=== PATIENT | male | born 1985 | race Hispanic/Latino ===

== ENCOUNTER 2016-04-08 16:14 | Emergency (ER) | payer MEDICAID ==
[2016-04-08 17:31] LABS: Urine Drugs of Abuse Note Disclamer
--- NOTE | 2016-04-08 17:41 | Emergency Department Report ---
ED General Adult HPI - General Chief complaint: Psych Stated complaint: COMBATIVE Time Seen by Provider: 04/08/16 17:31 Source: police, RN notes reviewed Mode of arrival: Ambulatory Limitations: Altered Mental Status, Other (intoxicated) - History of Present Illness Initial comments: This is a 30-year-old male, previously unknown to me. He is brought to the hospital by police department. As per documentation from police department, patient was "combative, no sense of reality." The police guard indicated that the patient appeared upset and was combative. Patient required handcuffs. The patient to me is quite disorganized. He is talking about running through a fall risk, and he is worried about humpty dumpty and a jessica rabbit. She has scratches on his right forehead, and indicates that he was running through her [place]. The patient denies homicidality and suicidality. He denies abdominal pain and chest pain. -: unknown Severity scale (0 -10): 0 Consistency: constant Improves with: none Worsens with: none Associated Symptoms: confusion - Related Data Home Medications Medication Instructions Recorded Confirmed Last Taken ALPRAZolam [Xanax TAB] 0.5 mg PO BID PRN 04/08/16 04/08/16 Unknown Diazepam Tab [Valium] 2 mg PO QHS 04/08/16 04/08/16 Unknown clonazePAM [ Klonopin] 0.5 mg PO BID PRN 04/08/16 04/08/16 Unknown Allergies Allergy/AdvReac Type Severity Reaction Status Date / Time risperidone [From Risperdal] Allergy Unknown Verified 04/08/16 17:24 ED Review of Systems ROS: Stated complaint: COMBATIVE Other details as noted in HPI Comment: Unobtainable due to pts medical conditions Constitutional: denies: fever Eyes: denies: vision change ENT: denies: epistaxis Respiratory: denies: cough Cardiovascular: denies: chest pain Gastrointestinal: denies: abdominal pain Genitourinary: as per HPI Musculoskeletal: as per HPI, arthralgia Skin: lesions Neurological: confusion Psychiatric: as per HPI ED Past Medical Hx - Past Medical History Previous Medical History?: No - Social History Smoking Status: Unknown if ever smoked - Medications Home Medications: Home Medications Medication Instructions Recorded Confirmed Last Taken Type ALPRAZolam [Xanax TAB] 0.5 mg PO BID PRN 04/08/16 04/08/16 Unknown History Diazepam Tab [Valium] 2 mg PO QHS 04/08/16 04/08/16 Unknown History clonazePAM [ Klonopin] 0.5 mg PO BID PRN 04/08/16 04/08/16 Unknown History ED Physical Exam - General General appearance: alert, in no apparent distress - Head Head exam: Present: normocephalic, other (superficial abrasions on the right forehead.) - Eye Eye exam: Present: normal appearance, EOMI. Absent: nystagmus - ENT ENT exam: Present: normal exam, normal orophraynx, mucous membranes moist - Neck Neck exam: Present: normal inspection, full ROM. Absent: tenderness, meningismus - Respiratory Respiratory exam: Present: normal lung sounds bilaterally. Absent: respiratory distress, wheezes, rales, rhonchi, stridor, chest wall tenderness - Cardiovascular Cardiovascular Exam: Present: regular rate, normal rhythm, normal heart sounds. Absent: bradycardia, tachycardia, irregular rhythm, systolic murmur, diastolic murmur, rubs, gallop - GI/Abdominal GI/Abdominal exam: Present: soft, normal bowel sounds. Absent: distended, tenderness, guarding, rebound, rigid, pulsatile mass - Rectal Rectal exam: Present: deferred - Extremities Exam Extremities exam: Present: normal inspection, full ROM, normal capillary refill. Absent: tenderness, pedal edema, joint swelling, calf tenderness - Back Exam Back exam: Present: normal inspection, full ROM. Absent: tenderness, CVA tenderness (R), CVA tenderness (L), muscle spasm, paraspinal tenderness, vertebral tenderness - Neurological Exam Neurological exam: Present: alert, normal gait, other (Extraocular movements intact. Tongue midline. No facial droop. Facial sensation intact to light touch in the V1, V2, V3 distribution bilaterally. 5 and 5 strength in 4 extremities.. Sensation is intact to light touch in 4 extremities.). Absent: motor sensory deficit - Psychiatric Psychiatric exam: Present: anxious - Skin Skin exam: Present: warm, dry, intact, normal color. Absent: rash ED Course Vital Signs 04/08/16 04/08/16 04/08/16 17:17 17:20 17:21 Temperature 98.7 F 98.7 F Pulse Rate 96 H 96 H Respiratory 16 16 16 Rate Blood Pressure 124/80 Blood Pressure 124/80 [Left] O2 Sat by Pulse 97 97 97 Oximetry - Reevaluation(s) Reevaluation #1: 04/08/16 18:45 Differential diagnosis: Rhabdomyolysis, intracranial injury, cervical spine injury, psychosis secondary to drugs Assessment and plan: 30-year-old male brought to the hospital by police for aggressive behavior and being combative. Clinically appears intoxicated. Noncontrast CAT scan of the cervical spine and brain are pending. Laboratory studies are reviewed. Creatinine kinase pending. Patient clearly represents a danger to himself and other people, is unable to make decisions, does not exhibit decision-making capacity. Therefore he will require 1013. However, if the patient kristy up, is not combative, and is not belligerent, and can clearly demonstrate decision-making capacity, I think it would be reasonable to discontinue his 1013. Reevaluation #2: 04/08/16 20:[address] scan of the head and cervical spine are negative. Laboratory studies reviewed. Creatinine kinase of 600 minimal, compartments are soft, does not meet criteria for IV fluids. Patient can tolerate hydration orally, which will decrease his CK level. At this point in time, I see no immediate medical contraindication to psychiatric admission/evaluation/patient. The manager medical is informed. 04/08/16 20:16 ED Medical Decision Making - Lab Data Result diagrams: 04/08/16 17:30 04/08/16 17:30 Vital Signs 04/08/16 04/08/16 04/08/16 17:17 17:20 17:21 Temperature 98.7 F 98.7 F Pulse Rate 96 H 96 H Respiratory 16 16 16 Rate Blood Pressure 124/80 Blood Pressure 124/80 [Left] O2 Sat by Pulse 97 97 97 Oximetry Lab Results 04/08/16 04/08/16 04/08/16 Range/Units 17:28 17:28 17:30 WBC (4.5-11.0) K/mm3 RBC (3.65-5.03) M/mm3 Hgb (11.8-15.2) gm/dl Hct (35.5-45.6) % MCV (84-94) fl MCH (28-32) pg MCHC (32-34) % RDW (13.2-15.2) % Plt Count (140-440) K/mm3 Lymph % (Auto) (13.4-35.0) % [place] % (Auto) (0.0-7.3) % Eos % (Auto) (0.0-4.3) % Baso % (Auto) (0.0-1.8) % Lymph # (1.2-5.4) K/mm3 [place] # (0.0-0.8) K/mm3 Eos # (0.0-0.4) K/mm3 Baso # (0.0-0.1) K/mm3 Seg Neutrophils % (40.0-70.0) % Seg Neutrophils # (1.8-7.7) K/mm3 Sodium 140 (137-145) mmol/L Potassium 3.8 (3.6-5.0) mmol/L Chloride 99.7 (98-107) mmol/L Carbon Dioxide 25 (22-30) mmol/L Anion Gap 19 mmol/L BUN 9 (9-20) mg/dL Creatinine 0.6 L (0.8-1.5) mg/dL Estimated GFR > 60 ml/min BUN/Creatinine Ratio 15.00 % Glucose 79 (75-100) mg/dL Calcium 9.1 (8.4-10.2) mg/dL Urine Color Yellow (Yellow) Urine Turbidity Clear (Clear) Urine pH 6.0 (5.0-7.0) Ur Specific [place] 1.009 (1.003-1.030) Urine Protein <15 mg/dl (Negative) mg/dL Urine Glucose (UA) Neg (Negative) mg/dL Urine Ketones Neg (Negative) mg/dL Urine Blood Neg (Negative) Urine Nitrite Neg (Negative) Urine Bilirubin Neg (Negative) Urine Urobilinogen < 2.0 (<2.0) mg/dL Ur Leukocyte Esterase Neg (Negative) Urine WBC (Auto) < 1.0 (0.0-6.0) /HPF Urine RBC (Auto) 2.0 (0.0-6.0) /HPF Urine Opiates Screen Presumptive negative Urine Methadone Screen Presumptive negative Ur Barbiturates Screen Presumptive negative Ur Phencyclidine Scrn Presumptive negative Ur Amphetamines Screen Presumptive negative U Benzodiazepines Scrn Presumptive negative Urine Cocaine Screen Presumptive negative U Marijuana (THC) Screen Presumptive positive Drugs of Abuse Note Disclamer Plasma/Serum Alcohol (0-0.07) gm% 04/08/16 04/08/16 Range/Units 17:30 17:30 WBC 6.6 (4.5-11.0) K/mm3 RBC 5.19 H (3.65-5.03) M/mm3 Hgb 12.5 (11.8-15.2) gm/dl Hct 40.2 (35.5-45.6) % MCV 77 L (84-94) fl MCH 24 L (28-32) pg MCHC 31 L (32-34) % RDW 16.4 H (13.2-15.2) % Plt Count 283 (140-440) K/mm3 Lymph % (Auto) 17.7 (13.4-35.0) % [place] % (Auto) 7.5 H (0.0-7.3) % Eos % (Auto) 2.6 (0.0-4.3) % Baso % (Auto) 0.9 (0.0-1.8) % Lymph # 1.2 (1.2-5.4) K/mm3 [place] # 0.5 (0.0-0.8) K/mm3 Eos # 0.2 (0.0-0.4) K/mm3 Baso # 0.1 (0.0-0.1) K/mm3 Seg Neutrophils % 71.3 H (40.0-70.0) % Seg Neutrophils # 4.7 (1.8-7.7) K/mm3 Sodium (137-145) mmol/L Potassium (3.6-5.0) mmol/L Chloride (98-107) mmol/L Carbon Dioxide (22-30) mmol/L Anion Gap mmol/L BUN (9-20) mg/dL Creatinine (0.8-1.5) mg/dL Estimated GFR ml/min BUN/Creatinine Ratio % Glucose (75-100) mg/dL Calcium (8.4-10.2) mg/dL Urine Color (Yellow) Urine Turbidity (Clear) Urine pH (5.0-7.0) Ur Specific [place] (1.003-1.030) Urine Protein (Negative) mg/dL Urine Glucose (UA) (Negative) mg/dL Urine Ketones (Negative) mg/dL Urine Blood (Negative) Urine Nitrite (Negative) Urine Bilirubin (Negative) Urine Urobilinogen (<2.0) mg/dL Ur Leukocyte Esterase (Negative) Urine WBC (Auto) (0.0-6.0) /HPF Urine RBC (Auto) (0.0-6.0) /HPF Urine Opiates Screen Urine Methadone Screen Ur Barbiturates Screen Ur Phencyclidine Scrn Ur Amphetamines Screen U Benzodiazepines Scrn Urine Cocaine Screen U Marijuana (THC) Screen Drugs of Abuse Note Plasma/Serum Alcohol 0.02 (0-0.07) gm% - Radiology Data Radiology results: report reviewed, image reviewed ct head and spine negative for acute disease Critical care attestation.: If time is entered above; I have spent that time in minutes in the direct care of this critically ill patient, excluding procedure time. ED Disposition Clinical Impression: Psychosis Disposition: DC/TX PSY HOSP/PSY UNIT Is pt being admited?: No Does the pt Need Aspirin: No Condition: Good Referrals: PRIMARY CARE, [Primary Care Provider] - 3-5 Days
[2016-04-08 17:54] LABS: Basophils % (Auto) 0.9 % (0.0-1.8); Eosinophils % (Auto) 2.6 % (0.0-4.3); Hematocrit 40.2 % (35.5-45.6); Hemoglobin 12.5 gm/dl (11.8-15.2); Mean Corpuscular HGB Conc 31 % (32-34); Mean Corpuscular Volume 77 fl (84-94); Platelet Count 283 K/mm3 (140-440); Red Blood Count 5.19 M/mm3 (3.65-5.03); Red Cell Distribution Width 16.4 % (13.2-15.2); White Blood Count 6.6 K/mm3 (4.5-11.0)
[2016-04-08 17:57] LABS: Bilirubin,Urine NEG (Negative); Blood,Urine NEG (Negative); Ketones,Urine NEG (Negative); Leukocyte Esterase,Urine NEG (Negative); Nitrite,Urine NEG (Negative); Protein,Urine <15 mg/dL mg/dL (Negative); Urobilinogen,Urine < 2.0 mg/dL (<2.0); WBC,Urine < 1.0 /HPF (0.0-6.0)
[2016-04-08 18:13] LABS: Anion Gap 19 mmol/L; Blood Urea Nitrogen 9 mg/dL (9-20); Calcium 9.1 mg/dL (8.4-10.2); Carbon Dioxide 25 mmol/L (22-30); Chloride 99.7 mmol/L (98-107); Glucose 79 mg/dL (75-100); Potassium 3.8 mmol/L (3.6-5.0); Sodium 140 mmol/L (137-145)
[2016-04-08 18:23] LABS: Mean Corpuscular Hemoglobin 24 pg (28-32)
[2016-04-08] MEDS ORDERED: ATIVAN IM PRN ×2 (18:51→20:06)
[2016-04-08] MEDS ORDERED: VALIUM IM ONE (19:16)
[2016-04-08] MEDS ORDERED: HALDOL IM ONE (19:16)
--- NOTE | 2016-04-08 20:14 | Cat Scan Report ---
FINAL REPORT EXAM: CT HEAD/BRAIN WO CON HISTORY: aggressive bevahior TECHNIQUE: CT head without contrast PRIORS: None. FINDINGS: No acute intra-axial or extra-axial hemorrhage is identified. There is no evidence of midline shift or mass effect. The ventricles and sulci are within normal limits. Zee-white matter differentiation is intact. No acute parenchymal abnormalities seen. Bony calvarium is grossly intact. There is increased density within ethmoid air cells and frontal sinus most consistent with chronic sinusitis. IMPRESSION: Evidence for chronic sinusitis No acute intracranial findings
--- NOTE | 2016-04-08 20:15 | Cat Scan Report ---
FINAL REPORT EXAM: CT CERVICAL SPINE WO CON HISTORY: aggressive bevahior TECHNIQUE: CT cervical spine with reconstructions PRIORS: None. FINDINGS: Vertebral bodies demonstrate normal height and alignment. The disk spaces are within normal limits. The facet joints demonstrate normal alignment. The spinous processes are intact. Craniocervical junction is unremarkable. C1 and C2 are intact. Incidentally noted is hemangioma within right pedicle T1 IMPRESSION: Negative CT cervical spine. No acute abnormality seen.
--- NOTE | 2016-04-09 15:30 | Event Note ---
Date: 04/09/16 No recent events. Patient awaits psychiatric placement. Vital Signs 04/08/16 04/08/16 04/08/16 17:17 17:20 17:21 Temperature 98.7 F 98.7 F Pulse Rate 96 H 96 H Respiratory 16 16 16 Rate Blood Pressure 124/80 Blood Pressure 124/80 [Left] O2 Sat by Pulse 97 97 97 Oximetry 04/08/16 21:20 Temperature 98.6 F Pulse Rate 89 Respiratory 18 Rate Blood Pressure Blood Pressure 124/68 [Left] O2 Sat by Pulse 97 Oximetry
[2016-04-09 15:32] VITALS: BP 122/78
== END 2016-04-09 22:00 ==
LOC: EEVIPCON 16:14 → ED 16:14
DX: F29 Unspecified psychosis not due to a substance or known physiological condition (principal); S00.81XA Abrasion of other part of head, initial encounter; X58.XXXA Exposure to other specified factors, initial encounter; Y93.9 Activity, unspecified; Y92.9 Unspecified place or not applicable; Y99.9 Unspecified external cause status
CPT/HCPCS: 36415; 70450; 72125; 80048; 80307; 81001; 82550; 85025; 96372; 99285; G0480; J2060; 80320

== ENCOUNTER 2018-06-12 16:21 | Emergency (ER) | payer MEDICARE ==
--- NOTE | 2018-06-12 18:45 | Emergency Department Report ---
ED General Adult HPI - General Chief complaint: Psych Stated complaint: PSYCH Time Seen by Provider: 06/12/18 17:59 Source: patient, EMS (ems notes not available at time of chart dictation), RN notes reviewed, old records reviewed Mode of arrival: Ambulatory Limitations: No Limitations - History of Present Illness Initial comments: This is a 32-year-old gentleman, known to this provider previously, history of psychiatric disease and hypertension, who presents to the emergency room today with a complaint of pain less suicidality. Symptoms present 1 month. Hallucinations. He denies overdose, denies access to guns, firearms. He reports that he is not really taking his outpatient medications. He denies headache, neck pain, chest pain, abdominal pain, shortness of breath. He reports no exacerbating or relieving factors. Reports no qualitative nature to his symptoms, and describes no radiation. -: Gradual, week(s) Consistency: constant Improves with: none Worsens with: none Associated Symptoms: denies other symptoms - Related Data Home Medications Medication Instructions Recorded Confirmed Last Taken ALPRAZolam [Xanax TAB] 0.5 mg PO BID PRN 04/08/16 04/08/16 Unknown clonazePAM [ Klonopin] 0.5 mg PO BID PRN 04/08/16 04/08/16 Unknown diazePAM TAB [Valium] 2 mg PO QHS 04/08/16 04/08/16 Unknown Allergies Allergy/AdvReac Type Severity Reaction Status Date / Time risperidone [From Risperdal] Allergy Unknown Verified 06/12/18 17:52 ED Review of Systems ROS: Stated complaint: PSYCH Other details as noted in HPI Constitutional: denies: fever Eyes: denies: vision change ENT: denies: epistaxis Respiratory: denies: cough Cardiovascular: denies: chest pain Gastrointestinal: denies: abdominal pain Genitourinary: denies: urgency, dysuria Musculoskeletal: denies: back pain Skin: denies: lesions Neurological: denies: headache, weakness Psychiatric: auditory hallucinations, suicidal thoughts. denies: visual hallucinations, homicidal thoughts ED Past Medical Hx - Past Medical History Hx Hypertension: Yes Hx Psychiatric Treatment: Yes (Bipolar, schizophrenia) - Social History Smoking Status: Current Every Day Smoker Substance Use Type: None - Medications Home Medications: Home Medications Medication Instructions Recorded Confirmed Last Taken Type ALPRAZolam [Xanax TAB] 0.5 mg PO BID PRN 04/08/16 04/08/16 Unknown History clonazePAM [ Klonopin] 0.5 mg PO BID PRN 04/08/16 04/08/16 Unknown History diazePAM TAB [Valium] 2 mg PO QHS 04/08/16 04/08/16 Unknown History ED Physical Exam - General Limitations: No Limitations General appearance: alert - Head Head exam: Present: atraumatic, normocephalic - Eye Eye exam: Present: normal appearance, EOMI, other (visual acuity intact to finger counting, color perception, reading at a close distance). Absent: nystagmus - ENT ENT exam: Present: normal exam, normal orophraynx, mucous membranes moist, normal external ear exam - Neck Neck exam: Present: normal inspection, full ROM. Absent: tenderness, meni ngismus - Respiratory Respiratory exam: Present: normal lung sounds bilaterally. Absent: respiratory distress - Cardiovascular Cardiovascular Exam: Present: regular rate, normal rhythm, normal heart sounds. Absent: bradycardia, tachycardia, irregular rhythm, systolic murmur, diastolic murmur, rubs, gallop - GI/Abdominal GI/Abdominal exam: Present: soft. Absent: distended, tenderness, guarding, rebound, rigid, pulsatile mass - Rectal Rectal exam: Present: deferred - Extremities Exam Extremities exam: Present: normal inspection, full ROM, other (2+ pulses noted in the bilateral upper, lower extremities. Compartments soft. No long bony tenderness. The pelvis is stable.). Absent: pedal edema, joint swelling, calf tenderness - Back Exam Back exam: Present: normal inspection, full ROM. Absent: tenderness, CVA tenderness (R), paraspinal tenderness, vertebral tenderness - Neurological Exam Neurological exam: Present: alert, oriented X3, CN II-XII intact, normal gait, other (Extraocular movements intact. Tongue midline. No facial droop. Facial sensation intact to light touch in the V1, V2, V3 distribution bilaterally. 5 and 5 strength in 4 extremities.. Sensation is intact to light touch in 4 extremities.). Absent: motor sensory deficit - Psychiatric Psychiatric exam: Present: flat affect, suicidal ideation - Skin Skin exam: Present: warm, dry, intact, normal color. Absent: rash ED Course Vital Signs 06/12/18 06/12/18 17:52 17:59 Temperature 98.4 F Pulse Rate 82 Respiratory 18 16 Rate Blood Pressure 150/92 O2 Sat by Pulse 96 Oximetry - Reevaluation(s) Reevaluation #1: 06/12/18 19:23 Differential diagnosis, including but not limited to: Mood disorder, suicidality, medical clearance for psychiatric placement Assessment and plan: 32-year-old gentleman, calm and cooperative, flat affect, with suicidality. Patient is afebrile, with reassuring vital signs with the exception of hypertension, which does not appear to be acutely decompensated. The patient will be placed on a 1013, and screening laboratory studies will be obtained. A psychiatric consultation has been requested, and we will contact the psychiatric team once the patient has been deemed medically suitable for psychiatric placement. Reevaluation #2: 06/12/18 19:55 Laboratory studies reviewed, and are unremarkable at this time. At this point in time, there does not appear to be an immediate medical contraindication to psychiatric admission, evaluation, consultation and placement at this time. ED Medical Decision Making - Lab Data Result diagrams: 06/12/18 19:07 06/12/18 19:07 Vital Signs 06/12/18 06/12/18 17:52 17:59 Temperature 98.4 F Pulse Rate 82 Respiratory 18 16 Rate Blood Pressure 150/92 O2 Sat by Pulse 96 Oximetry Lab Results 06/12/18 06/12/18 06/12/18 Range/Units 19:07 19:07 19:07 WBC 7.9 (4.5-11.0) K/mm3 RBC 5.30 H (3.65-5.03) M/mm3 Hgb 13.6 (11.8-15.2) gm/dl Hct 41.2 (35.5-45.6) % MCV 78 L (84-94) fl MCH 26 L (28-32) pg MCHC 33 (32-34) % RDW 15.2 (13.2-15.2) % Plt Count 268 (140-440) K/mm3 Sodium 141 (137-145) mmol/L Potassium 5.1 H (3.6-5.0) mmol/L Chloride 100.8 (98-107) mmol/L Carbon Dioxide 29 (22-30) mmol/L Anion Gap 16 mmol/L BUN 8 L (9-20) mg/dL Creatinine 0.7 L (0.8-1.5) mg/dL Estimated GFR > 60 ml/min BUN/Creatinine Ratio 11 % Glucose 89 (75-100) mg/dL Calcium 9.5 (8.4-10.2) mg/dL Total Creatine Kinase 143 (55-170) units/L Urine Color (Yellow) Urine Turbidity (Clear) Urine pH (5.0-7.0) Ur Specific [place] (1.003-1.030) Urine Protein (Negative) mg/dL Urine Glucose (UA) (Negative) mg/dL Urine Ketones (Negative) mg/dL Urine Blood (Negative) Urine Nitrite (Negative) Urine Bilirubin (Negative) Urine Urobilinogen (<2.0) mg/dL Ur Leukocyte Esterase (Negative) Urine WBC (Auto) (0.0-6.0) /HPF Urine RBC (Auto) (0.0-6.0) /HPF Urine Mucus /HPF Salicylates < 0.3 L (2.8-20.0) mg/dL Urine Opiates Screen Urine Methadone Screen Acetaminophen (10.0-30.0) ug/mL Ur Barbiturates Screen Ur Phencyclidine Scrn Ur Amphetamines Screen U Benzodiazepines Scrn Urine Cocaine Screen U Marijuana (THC) Screen Drugs of Abuse Note Plasma/Serum Alcohol (0-0.07) % 06/12/18 06/12/18 06/12/18 Range/Units 19:07 19:07 Unknown WBC (4.5-11.0) K/mm3 RBC (3.65-5.03) M/mm3 Hgb (11.8-15.2) gm/dl Hct (35.5-45.6) % MCV (84-94) fl MCH (28-32) pg MCHC (32-34) % RDW (13.2-15.2) % Plt Count (140-440) K/mm3 Sodium (137-145) mmol/L Potassium (3.6-5.0) mmol/L Chloride (98-107) mmol/L Carbon Dioxide (22-30) mmol/L Anion Gap mmol/L BUN (9-20) mg/dL Creatinine (0.8-1.5) mg/dL Estimated GFR ml/min BUN/Creatinine Ratio % Glucose (75-100) mg/dL Calcium (8.4-10.2) mg/dL Total Creatine Kinase (55-170) units/L Urine Color Yellow (Yellow) Urine Turbidity Clear (Clear) Urine pH 7.0 (5.0-7.0) Ur Specific [place] 1.006 (1.003-1.030) Urine Protein <15 mg/dl (Negative) mg/dL Urine Glucose (UA) Neg (Negative) mg/dL Urine Ketones Neg (Negative) mg/dL Urine Blood Neg (Negative) Urine Nitrite Neg (Negative) Urine Bilirubin Neg (Negative) Urine Urobilinogen < 2.0 (<2.0) mg/dL Ur Leukocyte Esterase Neg (Negative) Urine WBC (Auto) < 1.0 (0.0-6.0) /HPF Urine RBC (Auto) 1.0 (0.0-6.0) /HPF Urine Mucus Few /HPF Salicylates (2.8-20.0) mg/dL Urine Opiates Screen Urine Methadone Screen Acetaminophen < 5.0 L (10.0-30.0) ug/mL Ur Barbiturates Screen Ur Phencyclidine Scrn Ur Amphetamines Screen U Benzodiazepines Scrn Urine Cocaine Screen U Marijuana (THC) Screen Drugs of Abuse Note Plasma/Serum Alcohol < 0.01 (0-0.07) % 06/12/18 Range/Units Unknown WBC (4.5-11.0) K/mm3 RBC (3.65-5.03) M/mm3 Hgb (11.8-15.2) gm/dl Hct (35.5-45.6) % MCV (84-94) fl MCH (28-32) pg MCHC (32-34) % RDW (13.2-15.2) % Plt Count (140-440) K/mm3 Sodium (137-145) mmol/L Potassium (3.6-5.0) mmol/L Chloride (98-107) mmol/L Carbon Dioxide (22-30) mmol/L Anion Gap mmol/L BUN (9-20) mg/dL Creatinine (0.8-1.5) mg/dL Estimated GFR ml/min BUN/Creatinine Ratio % Glucose (75-100) mg/dL Calcium (8.4-10.2) mg/dL Total Creatine Kinase (55-170) units/L Urine Color (Yellow) Urine Turbidity (Clear) Urine pH (5.0-7.0) Ur Specific [place] (1.003-1.030) Urine Protein (Negative) mg/dL Urine Glucose (UA) (Negative) mg/dL Urine Ketones (Negative) mg/dL Urine Blood (Negative) Urine Nitrite (Negative) Urine Bilirubin (Negative) Urine Urobilinogen (<2.0) mg/dL Ur Leukocyte Esterase (Negative) Urine WBC (Auto) (0.0-6.0) /HPF Urine RBC (Auto) (0.0-6.0) /HPF Urine Mucus /HPF Salicylates (2.8-20.0) mg/dL Urine Opiates Screen Presumptive negative Urine Methadone Screen Presumptive negative Acetaminophen (10.0-30.0) ug/mL Ur Barbiturates Screen Presumptive negative Ur Phencyclidine Scrn Presumptive negative Ur Amphetamines Screen Presumptive negative U Benzodiazepines Scrn Presumptive negative Urine Cocaine Screen Presumptive negative U Marijuana (THC) Screen Presumptive negative Drugs of Abuse Note Disclamer Plasma/Serum Alcohol (0-0.07) % Critical care attestation.: If time is entered above; I have spent that time in minutes in the direct care of this critically ill patient, excluding procedure time. ED Disposition Clinical Impression: Medical clearance for psychiatric admission Disposition: DC/TX-65 PSY HOSP/PSY UNIT Is pt being admited?: No Does the pt Need Aspirin: No Condition: Good Referrals: SISSY DUNBAR MD [Primary Care Provider] - 3-5 Days
[2018-06-12] MEDS ORDERED: ATIVAN IM PRN (19:21)
[2018-06-12] MEDS ORDERED: HALDOL IM PRN (19:21)
[2018-06-12 19:25] LABS: Bilirubin,Urine NEG (Negative); Blood,Urine NEG (Negative); Color,Urine Yellow (Yellow); Mucus,Urine FEW /HPF; Protein,Urine <15 mg/dL mg/dL (Negative); Urobilinogen,Urine < 2.0 mg/dL (<2.0)
[2018-06-12 19:26] LABS: WBC,Urine < 1.0 /HPF (0.0-6.0)
[2018-06-12 19:27] LABS: Hematocrit 41.2 % (35.5-45.6); Hemoglobin 13.6 gm/dl (11.8-15.2); Mean Corpuscular HGB Conc 33 % (32-34); Mean Corpuscular Volume 78 fl (84-94); Red Cell Distribution Width 15.2 % (13.2-15.2)
[2018-06-12 19:33] LABS: Amphetamine Screen,Urine PRESUMPTIVE NEGATIVE; Benzodiazepines Screen,Urine PRESUMPTIVE NEGATIVE; Cannabinoid Screen,Urine PRESUMPTIVE NEGATIVE; Cocaine Screen,Urine PRESUMPTIVE NEGATIVE; Methadone Screen,Urine PRESUMPTIVE NEGATIVE; Opiate Screen,Urine PRESUMPTIVE NEGATIVE
[2018-06-12 19:38] LABS: Platelet Count 268 K/mm3 (140-440)
[2018-06-12 19:45] LABS: BUN/Creatinine Ratio 11; Blood Urea Nitrogen 8 mg/dL (9-20); Calcium 9.5 mg/dL (8.4-10.2); Hemolysis Index 22
[2018-06-12] MEDS: NORVASC PO SCH (20:16)
[2018-06-13] MEDS: NORVASC PO SCH (09:50)
[2018-06-13 13:50] VITALS: BP 135/79
== END 2018-06-13 14:15 ==
LOC: EEVIPCON 16:21 → ED 16:21
DX: R44.0 Auditory hallucinations (principal); R45.851 Suicidal ideations; Z88.8 Allergy status to other drugs, medicaments and biological substances
CPT/HCPCS: 36415; 80048; 80307; 81001; 82550; 85027; 99285; G0480; 80320

== ENCOUNTER 2018-07-22 17:37 | Emergency (ER) | payer MEDICARE ==
--- NOTE | 2018-07-22 17:55 | Emergency Department Report ---
Blank Doc - Documentation Documentation: 32 y/o male comes in for suicide ideation.
[2018-07-22 18:18] LABS: Basophils # (Auto) 0.1 K/mm3 (0.0-0.1); Basophils % (Auto) 0.9 % (0.0-1.8); Eosinophils # (Auto) 0.1 K/mm3 (0.0-0.4); Eosinophils % (Auto) 2.5 % (0.0-4.3); Hemoglobin 12.3 gm/dl (11.8-15.2); Lymphocytes % (Auto) 34.9 % (13.4-35.0); Mean Corpuscular HGB Conc 33 % (32-34); Mean Corpuscular Volume 76 fl (84-94); Monocytes # (Auto) 0.5 K/mm3 (0.0-0.8); Monocytes % (Auto) 8.6 % (0.0-7.3); Platelet Count 278 K/mm3 (140-440); Red Blood Count 4.85 M/mm3 (3.65-5.03); Red Cell Distribution Width 15.5 % (13.2-15.2)
[2018-07-22 18:31] LABS: Bilirubin,Urine NEG (Negative); Blood,Urine NEG (Negative); Color,Urine Straw (Yellow); Protein,Urine <15 mg/dL mg/dL (Negative); Urobilinogen,Urine < 2.0 mg/dL (<2.0)
[2018-07-22 18:41] LABS: Amphetamine Screen,Urine PRESUMPTIVE NEGATIVE; Benzodiazepines Screen,Urine PRESUMPTIVE NEGATIVE; Cannabinoid Screen,Urine PRESUMPTIVE NEGATIVE; Cocaine Screen,Urine PRESUMPTIVE NEGATIVE; Methadone Screen,Urine PRESUMPTIVE NEGATIVE; Opiate Screen,Urine PRESUMPTIVE NEGATIVE
[2018-07-22 18:42] LABS: Alanine Aminotransferase 14 units/L (7-56); Albumin 4.6 g/dL (3.9-5); BUN/Creatinine Ratio 5; Blood Urea Nitrogen 3 mg/dL (9-20); Hemolysis Index 15
[2018-07-22] MEDS ORDERED: NACL 0.9% 1000 ML 1,000 ML IV ONE ×2 (20:43)
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
--- NOTE | 2018-07-23 08:39 | Consultation ---
History of Present Illness - Reason for Consult Consult date: 07/23/18 Reason for consult: Mental Health EValuation Requesting physician: HI SHOOK - Chief Complaint Chief complaint: "I am okay" - History of Present Psychiatric Illness 32 y.o. white male who presented to the ER for SI's. Today the patient is calm during the assessment. He stated that he was dealing with some issue that caused him o be suicidal. He didn't want to elaborate about his "issue" when asked. He stated that he reside in [place], [place]. He would not confirm or deny a suicide plan. He rate his depression 6/10, with 10 being the worse. He was asked about previous suicide attempts and inpatient psy services, he replied "possibly, I don't know." He denies SI/HI's and AVH's. He denies erratic sleep and a poor appetite. He denies recreational drug use and alcohol consumption (etoh). Medications and Allergies Allergies Allergy/AdvReac Type Severity Reaction Status Date / Time risperidone [From Risperdal] Allergy Unknown Verified 07/22/18 17:38 Home Medications Medication Instructions Recorded Confirmed Last Taken Type ALPRAZolam [Xanax TAB] 0.5 mg PO BID PRN 04/08/16 06/13/18 Unknown History clonazePAM [ Klonopin] 0.5 mg PO BID PRN 04/08/16 06/13/18 Unknown History Past psychiatric history - Past Medical History Past Medical History: hypertension Past Surgical History: No surgical history - past Psychiatric treatment and history psychiatric treatment history: Inpatient psy services. Denies a fam psy hx. - Social History Social history: other (Reside at a alf) Mental Status Exam - Vital signs Last Vital Signs Temp 97.7 F 07/23/18 01:00 Pulse 62 07/23/18 01:00 Resp 18 07/23/18 01:00 BP 114/63 07/23/18 01:00 Pulse Ox 96 07/23/18 01:00 - Exam Narrative exam: MSE: Appearance: calm Behavior: regular eye contact Speech: regular rate and tone Mood: "depressed" guarded Affect: flat Thought Process: circumstantial Thought Content: denies SI/HI's and AVH's Motor Activity: ambulatory Cognition: A/O x3 Insight: variable Judgment: variable Results Result Diagrams: 07/22/18 18:05 07/22/18 18:05 Abnormal lab results 07/22/18 07/22/18 07/22/18 Range/Units 18:05 18:05 18:05 MCV 76 L (84-94) fl MCH 25 L (28-32) pg RDW 15.5 H (13.2-15.2) % [place] % (Auto) 8.6 H (0.0-7.3) % Sodium 128 L (137-145) mmol/L Chloride 91.5 L (98-107) mmol/L BUN 3 L (9-20) mg/dL Creatinine 0.6 L (0.8-1.5) mg/dL Ur Specific [place] (1.003-1.030) Acetaminophen < 5.0 L (10.0-30.0) ug/mL 07/22/18 Range/Units Unknown MCV (84-94) fl MCH (28-32) pg RDW (13.2-15.2) % [place] % (Auto) (0.0-7.3) % Sodium (137-145) mmol/L Chloride (98-107) mmol/L BUN (9-20) mg/dL Creatinine (0.8-1.5) mg/dL Ur Specific [place] 1.002 L (1.003-1.030) Acetaminophen (10.0-30.0) ug/mL All other labs normal. Assessment and Plan Assessment and plan: Impression: MDD. Today the patient calm during the assessment. The patient is guarded throughout the interview. DDx: R/O Bipolar DO Recommendation/Plan: Continue 1013. Dispo: The patient was accepted at [facility] for inpatient psy services. Will staff with Dr Richard Cevallos. `
[2018-07-23 10:58] VITALS: BP 135/75
== END 2018-07-23 12:16 ==
LOC: ED 17:37 → EEVIPCON 17:37 → ED 07-23 12:16
DX: F23 Brief psychotic disorder (principal); I10 Essential (primary) hypertension; Z88.8 Allergy status to other drugs, medicaments and biological substances
CPT/HCPCS: 36415; 80053; 80307; 81001; 84295; 85025; 99285; G0480; J7030; 80320

== ENCOUNTER 2019-02-10 22:34 | Emergency (ER) | payer MEDICARE ==
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
[2019-02-10 23:17] LABS: Basophils # (Auto) 0.1 K/mm3 (0.0-0.1); Basophils % (Auto) 1.3 % (0.0-1.8); Eosinophils # (Auto) 0.3 K/mm3 (0.0-0.4); Eosinophils % (Auto) 5.9 % (0.0-4.3); Lymphocytes # (Auto) 1.8 K/mm3 (1.2-5.4); Lymphocytes % (Auto) 37.3 % (13.4-35.0); Mean Corpuscular HGB Conc 32 % (32-34); Mean Corpuscular Volume 75 fl (84-94); Monocytes # (Auto) 0.7 K/mm3 (0.0-0.8); Monocytes % (Auto) 13.8 % (0.0-7.3); Platelet Count 338 K/mm3 (140-440); Red Blood Count 5.04 M/mm3 (3.65-5.03); Red Cell Distribution Width 16.8 % (13.2-15.2)
[2019-02-10 23:33] LABS: BUN/Creatinine Ratio 16; Blood Urea Nitrogen 13 mg/dL (9-20); Calcium 9.3 mg/dL (8.4-10.2); Hemolysis Index 4
[2019-02-11 03:04] VITALS: BP 108/60
[2019-02-11 06:02] LABS: Bilirubin,Urine NEG (Negative); Blood,Urine NEG (Negative); Color,Urine Yellow (Yellow); Mucus,Urine 3+ /HPF
[2019-02-11 06:06] LABS: Amphetamine Screen,Urine PRESUMPTIVE NEGATIVE; Cannabinoid Screen,Urine PRESUMPTIVE NEGATIVE; Cocaine Screen,Urine PRESUMPTIVE NEGATIVE; Methadone Screen,Urine PRESUMPTIVE NEGATIVE; Opiate Screen,Urine PRESUMPTIVE NEGATIVE
[2019-02-11 06:21] LABS: Benzodiazepines Screen,Urine PRESUMPTIVE POSITIVE
== END 2019-02-11 14:48 | disposition home or self-care (01) ==
LOC: ED 22:34
DX: F14.10 Cocaine abuse, uncomplicated (principal); F11.10 Opioid abuse, uncomplicated; I10 Essential (primary) hypertension; F10.10 Alcohol abuse, uncomplicated; F17.200 Nicotine dependence, unspecified, uncomplicated; Z98.890 Other specified postprocedural states; Z88.8 Allergy status to other drugs, medicaments and biological substances
CPT/HCPCS: 36415; 80048; 80307; 80320; 81001; 85025; G0480

== ENCOUNTER 2019-03-09 15:32 | Emergency (ER) | payer MEDICARE ==
[2019-03-09 16:04] LABS: Bilirubin,Urine NEG (Negative); Blood,Urine NEG (Negative); Color,Urine Yellow (Yellow); Protein,Urine <15 mg/dL mg/dL (Negative); Urobilinogen,Urine < 2.0 mg/dL (<2.0)
[2019-03-09 16:11] LABS: Amphetamine Screen,Urine PRESUMPTIVE NEGATIVE; Benzodiazepines Screen,Urine PRESUMPTIVE NEGATIVE; Cannabinoid Screen,Urine PRESUMPTIVE NEGATIVE; Cocaine Screen,Urine PRESUMPTIVE NEGATIVE; Methadone Screen,Urine PRESUMPTIVE NEGATIVE; Opiate Screen,Urine PRESUMPTIVE NEGATIVE
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
[2019-03-09 16:28] LABS: Basophils # (Auto) 0.1 K/mm3 (0.0-0.1); Eosinophils # (Auto) 0.2 K/mm3 (0.0-0.4); Eosinophils % (Auto) 3.2 % (0.0-4.3); Hematocrit 37.8 % (35.5-45.6); Hemoglobin 11.9 gm/dl (11.8-15.2); Lymphocytes # (Auto) 1.4 K/mm3 (1.2-5.4); Lymphocytes % (Auto) 26.6 % (13.4-35.0); Mean Corpuscular HGB Conc 32 % (32-34); Mean Corpuscular Volume 73 fl (84-94); Monocytes # (Auto) 0.4 K/mm3 (0.0-0.8); Monocytes % (Auto) 7.4 % (0.0-7.3); Platelet Count 371 K/mm3 (140-440); Red Blood Count 5.18 M/mm3 (3.65-5.03); Red Cell Distribution Width 16.5 % (13.2-15.2)
[2019-03-09 16:49] LABS: Alanine Aminotransferase 17 units/L (7-56); Albumin 4.6 g/dL (3.9-5); BUN/Creatinine Ratio 10; Blood Urea Nitrogen 6 mg/dL (9-20); Hemolysis Index 1
[2019-03-09 17:32] VITALS: BP 130/79
== END 2019-03-09 18:09 | disposition home or self-care (01) ==
LOC: ED 15:32
DX: F20.0 Paranoid schizophrenia (principal); I10 Essential (primary) hypertension; F17.200 Nicotine dependence, unspecified, uncomplicated; F14.10 Cocaine abuse, uncomplicated; Z98.890 Other specified postprocedural states; Z79.899 Other long term (current) drug therapy; Z88.8 Allergy status to other drugs, medicaments and biological substances
CPT/HCPCS: 36415; 80053; 80307; 80320; 81001; 85025; G0480

== ENCOUNTER 2019-03-26 22:13 | Emergency (ER) | payer MEDICARE ==
[2019-03-26 23:13] LABS: Bilirubin,Urine NEG (Negative); Blood,Urine NEG (Negative); Color,Urine Straw (Yellow); Protein,Urine <15 mg/dL mg/dL (Negative); Urobilinogen,Urine < 2.0 mg/dL (<2.0)
[2019-03-26 23:20] LABS: Amphetamine Screen,Urine PRESUMPTIVE NEGATIVE; Benzodiazepines Screen,Urine PRESUMPTIVE NEGATIVE; Cannabinoid Screen,Urine PRESUMPTIVE NEGATIVE; Cocaine Screen,Urine PRESUMPTIVE NEGATIVE; Methadone Screen,Urine PRESUMPTIVE NEGATIVE; Opiate Screen,Urine PRESUMPTIVE NEGATIVE
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
[2019-03-26 23:44] LABS: Basophils % (Auto) 0.9 % (0.0-1.8); Eosinophils # (Auto) 0.3 K/mm3 (0.0-0.4); Eosinophils % (Auto) 5.6 % (0.0-4.3); Hematocrit 35.9 % (35.5-45.6); Hemoglobin 11.4 gm/dl (11.8-15.2); Lymphocytes % (Auto) 37.7 % (13.4-35.0); Mean Corpuscular HGB Conc 32 % (32-34); Mean Corpuscular Volume 72 fl (84-94); Monocytes # (Auto) 0.5 K/mm3 (0.0-0.8); Monocytes % (Auto) 8.4 % (0.0-7.3); Platelet Count 333 K/mm3 (140-440); Red Blood Count 4.97 M/mm3 (3.65-5.03); Red Cell Distribution Width 17.4 % (13.2-15.2)
[2019-03-26 23:59] LABS: BUN/Creatinine Ratio 18; Blood Urea Nitrogen 11 mg/dL (9-20); Calcium 9.4 mg/dL (8.4-10.2); Hemolysis Index 4
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
[2019-03-28] MEDS ORDERED: DIVALPROEX ER 500 MG TAB PO ONE (12:55)
[2019-03-28] MEDS ORDERED: MELATONIN 5 MG TAB PO PRN (13:04)
[2019-03-28] MEDS ORDERED: ZIPRASIDONE MESYLATE 20 MG VIAL IM PRN (13:04)
[2019-03-28] MEDS ORDERED: DIVALPROEX ER 250 MG TAB PO ONE (14:00)
[2019-03-28] MEDS: QUEtiapine 25 MG TAB PO SCH (14:25)
[2019-03-28] MEDS ORDERED: WATER FOR INJ Sterile (PF) 10 ML ONE (17:50)
[2019-03-28] MEDS ORDERED: LORazepam 2 MG/ML VIAL ONE (17:53)
[2019-03-28] MEDS ORDERED: LORazepam 2 MG/ML VIAL IV ONE (18:41)
[2019-03-28] MEDS: clonazePAM 0.5 MG TAB PO SCH (23:08)
[2019-03-28] MEDS: traZODone 50 MG TAB PO SCH (23:08)
[2019-03-28] MEDS: QUEtiapine 100 MG TAB PO SCH (23:08)
[2019-03-28] MEDS: DIVALPROEX ER 250 MG TAB PO SCH (23:08)
[2019-03-29] MEDS: clonazePAM 0.5 MG TAB PO SCH ×2 (11:00→23:07)
[2019-03-29] MEDS: QUEtiapine 25 MG TAB PO SCH (11:00)
[2019-03-29] MEDS: DIVALPROEX ER 250 MG TAB PO SCH ×2 (11:00→23:07)
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
[2019-03-29] MEDS: traZODone 50 MG TAB PO SCH (23:07)
[2019-03-29] MEDS: QUEtiapine 100 MG TAB PO SCH (23:07)
[2019-03-30 02:33] VITALS: BP 116/71
== END 2019-03-30 02:56 ==
LOC: ED 22:13 → EEVIPCON 22:13 → ED 03-30 02:56
DX: F20.0 Paranoid schizophrenia (principal); I10 Essential (primary) hypertension; F17.200 Nicotine dependence, unspecified, uncomplicated; Z79.899 Other long term (current) drug therapy
CPT/HCPCS: 36415; 80048; 80307; 81001; 85025; 96372; 96374; 99285; J2060; J3486; 80320; G0480

== ENCOUNTER 2020-01-09 22:05 | Emergency (ER) | payer MEDICARE ==
[2020-01-09 23:10] LABS: Hematocrit 36.1 % (35.5-45.6); Hemoglobin 11.7 gm/dl (11.8-15.2); Mean Corpuscular HGB Conc 32 % (32-34); Mean Corpuscular Volume 73 fl (84-94); Platelet Count 306 K/mm3 (140-440); Red Blood Count 4.94 M/mm3 (3.65-5.03); Red Cell Distribution Width 16.7 % (13.2-15.2)
[2020-01-09 23:28] LABS: Blood Urea Nitrogen 5 mg/dL (9-20); Calcium 9.5 mg/dL (8.4-10.2); Hemolysis Index 11
[2020-01-09 23:29] LABS: BUN/Creatinine Ratio 7
[2020-01-10 02:11] LABS: Bilirubin,Urine NEG (Negative); Blood,Urine NEG (Negative); Color,Urine Colorless (Yellow); Protein,Urine <15 mg/dL mg/dL (Negative); Urobilinogen,Urine < 2.0 mg/dL (<2.0)
[2020-01-10 02:49] LABS: Amphetamine Screen,Urine PRESUMPTIVE NEGATIVE; Benzodiazepines Screen,Urine PRESUMPTIVE POSITIVE; Cannabinoid Screen,Urine PRESUMPTIVE NEGATIVE; Cocaine Screen,Urine PRESUMPTIVE NEGATIVE; Methadone Screen,Urine PRESUMPTIVE NEGATIVE; Opiate Screen,Urine PRESUMPTIVE NEGATIVE
[2020-01-10 03:40] LABS: Basophils % (Manual) 0 % (0.0-1.8); Hypochromasia 1+; Total Cells Counted 100
[2020-01-10 03:42] LABS: Ovalocytes Few
[2020-01-10 03:43] LABS: Platelet Estimate Consistent w Auto
[2020-01-10 07:48] VITALS: BP 139/90
== END 2020-01-10 08:00 | disposition left against medical advice (07) ==
LOC: ED 22:05
DX: F22 Delusional disorders (principal); Z53.21 Procedure and treatment not carried out due to patient leaving prior to being seen by health care provider
CPT/HCPCS: 36415; 80048; 80307; 80320; 81001; 85007; 85025; G0480

== ENCOUNTER 2020-03-25 13:02 | Emergency (ER) | payer MEDICARE ==
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
[2020-03-25 14:38] LABS: Bilirubin,Urine NEG (Negative); Blood,Urine NEG (Negative); Color,Urine Colorless (Yellow); Protein,Urine <15 mg/dL mg/dL (Negative); Urobilinogen,Urine < 2.0 mg/dL (<2.0); WBC,Urine < 1.0 /HPF (0.0-6.0)
[2020-03-25] MEDS ORDERED: ACETAMINOPHEN 325 MG TAB PO ONE (14:43)
[2020-03-25 14:52] LABS: Blood Urea Nitrogen 7 mg/dL (9-20); Calcium 9.1 mg/dL (8.4-10.2); Hemolysis Index 23
[2020-03-25 15:03] LABS: BUN/Creatinine Ratio 12
[2020-03-25 15:04] LABS: Basophils # (Auto) 0.1 K/mm3 (0.0-0.1); Basophils % (Auto) 1.1 % (0.0-1.8); Eosinophils # (Auto) 0.3 K/mm3 (0.0-0.4); Eosinophils % (Auto) 4.8 % (0.0-4.3); Hematocrit 37.6 % (35.5-45.6); Lymphocytes # (Auto) 1.6 K/mm3 (1.2-5.4); Lymphocytes % (Auto) 29.4 % (13.4-35.0); Mean Corpuscular HGB Conc 32 % (32-34); Mean Corpuscular Volume 73 fl (84-94); Monocytes # (Auto) 0.5 K/mm3 (0.0-0.8); Monocytes % (Auto) 8.1 % (0.0-7.3); Platelet Count 315 K/mm3 (140-440); Red Blood Count 5.13 M/mm3 (3.65-5.03); Red Cell Distribution Width 17.6 % (13.2-15.2)
[2020-03-25 15:21] LABS: Amphetamine Screen,Urine Negative; Benzodiazepines Screen,Urine Negative; Cannabinoid Screen,Urine Negative; Cocaine Screen,Urine Negative; Methadone Screen,Urine Negative; Opiate Screen,Urine Negative
[2020-03-25] MEDS ORDERED: MAGNESIUM HYDROXIDE (MOM) ORAL LIQD UDC PO PRN (17:09)
[2020-03-25] MEDS ORDERED: ACETAMINOPHEN 325 MG TAB PO PRN (17:09)
[2020-03-25] MEDS ORDERED: ALUM-MAG HYDROXIDE-SIMETHICONE 200-200-20MG/5ML ORAL LIQD 30 ML PO PRN (17:09)
[2020-03-26] MEDS ORDERED: LORazepam 2 MG/ML VIAL ONE (07:55)
[2020-03-26] MEDS ORDERED: LORazepam 2 MG/ML VIAL IM STA (07:59)
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
[2020-03-26 12:38] VITALS: BP 133/78
== END 2020-03-26 13:30 | disposition home or self-care (01) ==
LOC: ED 13:02 → EEVIPCON 13:02 → ED 03-26 13:30
DX: R45.851 Suicidal ideations (principal); I10 Essential (primary) hypertension; F20.0 Paranoid schizophrenia; F17.200 Nicotine dependence, unspecified, uncomplicated; Z98.890 Other specified postprocedural states; Z79.899 Other long term (current) drug therapy; Z88.8 Allergy status to other drugs, medicaments and biological substances
CPT/HCPCS: 36415; 80048; 80307; 81001; 85025; 96372; 99285; J2060; 80320; G0480